=== PATIENT | male | born 1980 ===

== ENCOUNTER 2017-03-21 09:18 | Emergency (ER) | payer SELFPAY ==
--- NOTE | 2017-03-21 09:45 | UC ---
Throat Pain/Nasal Joseph HPI - HPI Summary HPI Summary: 36 y/o male presents to the urgent care c/o sore throat and sinus congestion, productive cough, hoarseness for the past 10 days. Pt reports he has been taking Nyquill and Mucinex PO to alleviate symptoms. Pt states this morning he had mild SOB and wheezing. He is and everyday smoker and has PMHx of sleep apnea and DM type II. He has had chill, but has not taken his temp. Pt denies chest pain, abdominal pain,N/V/D, dizziness. - History of Current Complaint Stated Complaint: SORE THROAT SINUS COMPLAINT Time Seen by Provider: 03/21/17 09:41 Hx Obtained From: Patient Onset/Duration: Gradual Onset, Lasting Weeks - 10 days, Worse Since - this morning Severity: Moderate Pain Intensity: 5 - sore throat Pain Scale Used: 0-10 Numeric Cough: Sputum Appears - yellowish Associated Signs & Symptoms: Positive: Wheezing, Hoarseness, Sinus Discomfort, Nasal Discharge, Other - Epiglottits Risk Factors Epiglottis Risk Factors: Negative - Allergies/Home Medications Allergies/Adverse Reactions: Allergies Allergy/AdvReac Type Severity Reaction Status Date / Time No Known Allergies Allergy Verified 03/21/17 09:52 Home Medications: Home Medications Pseudoephedrine-Guaifenesin [Mucinex D Maximum Strengt 120-1200 mg] 1 tab PO PRN 03/21/17 [History] PMH/Surg Hx/FS Hx/Imm Hx Previously Healthy: Yes Endocrine History: Diabetes Cardiovascular History: Hypertension - Family History Known Family History: Positive: Hypertension, Diabetes - Social History Occupation: Employed Full-time Lives: With Family Review of Systems Constitutional: Negative, Chills Skin: Negative Eyes: Negative ENT: Sore Throat, Nasal Discharge, Sinus Congestion Respiratory: Shortness Of Breath, Cough - productive with yellowish sputum Cardiovascular: Negative Gastrointestinal: Negative Genitourinary: Negative Motor: Negative Neurovascular: Negative Musculoskeletal: Negative Neurological: Negative Psychological: Negative Is Patient Immunocompromised?: No All Other Systems Reviewed And Are Negative: Yes Physical Exam Triage Information Reviewed: Yes - Additional Comments Vital Signs Reviewed: Yes General: well developed, well nourished male sitting in the examining table w/o any apparent distress Eyes: Positive: Conjunctiva Clear - PERRLA, EOMI, fundi grossly normal ENT: Positive: Normal ENT inspection, Hearing grossly normal, Pharynx with erythema and no exudate, Nasal congestion - edematous and erythematous nasal mucosa, Nasal drainage - yellowish drainage, TMs normal. Negative: Tonsillar swelling, Tonsillar exudate Neck: Positive: Supple, Nontender, No Lymphadenopathy Respiratory: no orthopnea or dyspnea. Able to speak in full sentences, no retractions or accessory muscle use, no tripod position, stridor, or head bobbing. Positive breath sounds. Positive rhonchi and mild wheezing in b/l posterior upper lungs, no crackles or rales Cardiovascular: Positive: RRR, No Murmur, Pulses Normal, Brisk Capillary Refill Abdomen Description: Positive: Nontender, No Organomegaly, Soft. Negative: CVA Tenderness (R), CVA Tenderness (L) Bowel Sounds: Positive: Present Musculoskeletal Exam: Normal Musculoskeletal: Positive: Strength Intact, ROM Intact, No Edema Neurological Exam: Normal Psychological Exam: Normal Skin Exam: Normal Throat Pain/Nasal Course/Dx - Course Course Of Treatment: 36 y/o male presents to the urgent care c/o sore throat and sinus congestion, productive cough, hoarseness for the past 10 days. Pt reports he has been taking Nyquill and Mucinex PO to alleviate symptoms. Pt states this morning he had mild SOB and wheezing. He is and everyday smoker and has PMHx of sleep apnea and DM type II. He has had chill, but has not taken his temp. Pt denies chest pain, abdominal pain,N/V/D, dizziness. Hx obtained. Pt with B/L posterior upper lungs wheezing and rhonchi and pharyngeal erythema on examination. O2sat: 98%. Pt declined Chest X-ray to r/o pneumonia due to insurance issues. Pt is an everyday smoker. Prednisone 60 mg PO ordered and Duneb treatment ordered. Pt tolerated well medications and his lungs improved. Pt states feeling better. Pt will be tx for Acute Bronchitis, Rx Doxycycline PO , Prednisone taper dose and Inhaler. Strongly advised to f/u with her PCP for further management. PMHX of DM and HTN. PT with elevated BP today, advised to decrease salt in his diet and monitor BP, if it continues to be elevated to f /u with PCP. Pt understood and agreed with D/C instructions and left the clinic hemodynamically stable. - Differential Dx/Diagnosis Differential Diagnosis/HQI/PQRI: Influenza, Mononucleosis, Pharyngitis, Sinusitis, Tonsillitis, URI, Other - pneumonia, bronchitis, Provider Diagnoses: 1- Acute bronchitis. 2-Cough. 3- Uncontrolled HTN Discharge - Discharge Plan Condition: Stable Disposition: HOME Prescriptions: Albuterol HFA INHALER* [Ventolin HFA Inhaler*] 2 puff INH Q4H PRN #1 mdi PRN Reason: Cough DOXYcycline CAP(*) [DOXYcycline 100MG CAP(*)] 100 mg PO BID #20 cap predniSONE TAB* [Deltasone TAB*] 20 mg PO DAILY #8 tab Patient Education Materials: Acute Bronchitis (ED), Low Sodium Diet (ED) Forms: *Work Release Referrals: [facility] – [place] [facility] [Outside] - 3 Days Additional Instructions: 1-Please take full course of antibiotic to avoid resistance. 2-Continue taking Mucinex PO tabs as directed and use the albuterol inhaler to alleviate cough. Increase fluid intake, rest and eat well. 3- If symptoms do not improve or worsen or your develop SOB with fever and severe wheezing please go immediately to the ER further evaluation and treatment. 4- F/u with your PCP in 2-3 days for further management. 5-Your BP is elevated today. please decrease salt in your diet, monitor BP and if it continues to be elevated please f/u with your PCP for further management
[2017-03-21 09:52] VITALS: BP 153/85
[2017-03-21] MEDS ORDERED: Albuterol/Ipratropium NEB.SOL* Albuterol 2.5 MG/Ipratropium 0.5 MG 3 ML INH ONE (10:03)
[2017-03-21] MEDS ORDERED: predniSONE TAB* 20 MG PO ONE (10:03)
== END 2017-03-21 11:16 | disposition home or self-care (01) ==
LOC: UCCORT 09:18
DX: J20.9 Acute bronchitis, unspecified (principal); R05 Cough; I10 Essential (primary) hypertension; E11.9 Type 2 diabetes mellitus without complications
CPT/HCPCS: 87651; 99202; A9270-GY; G0463; J7512